=== PATIENT | male | born 1970 ===

== ENCOUNTER 2017-11-09 16:49 | Emergency (ER) | payer SELFPAY ==
[2017-11-09] MEDS ORDERED: LORazepam 2 MG/ML VIAL ONE (16:57)
[2017-11-09] MEDS ORDERED: OLANZapine 10 MG VIAL IM ONLY ONE ×2 (17:05→17:06)
[2017-11-09] MEDS ORDERED: diphenhydrAMINE 50 MG/ML VIAL IVP ONE (17:05)
[2017-11-09] MEDS ORDERED: WATER STERILE 10 ML VIAL IM ONLY ONE (17:05)
--- NOTE | 2017-11-09 17:09 | ER Report ---
History and Physical Time Seen By MD: 16:50 Hx. of Stated Complaint: pt arrested for meth use, states he used 3 days ago, reports chest pain radiating to L jaw and neck, dishoretic, restless, hx mi HPI/ROS CHIEF COMPLAINT: Chest pain, methamphetamine use, medical clearance HISTORY OF PRESENT ILLNESS: Patient is a 47-year-old male accompanied by police , who presents to the ED with complaint of chest pain. The police state that they have put the patient under arrest for DUI with methamphetamine use and he complained of chest pain when they were arresting him. Patient states that while resting he was dropped on the back and is complaining of some lumbar back pain. He states that he has been dealing with PTSD as well and feels that this is making his anxiety worse because of the police. He states that he has not used methamphetamine for the past 3 days but the police believe that he did use this today. Patient denies any palpitations. He states that he is chest pain appears to be radiating to his left arm and left jaw. He states that he just developed this while being arrested. He denies any shortness of breath. REVIEW OF SYSTEMS: Constitutional: No fever, no chills. Eyes: No discharge. ENT: No sore throat. Cardiovascular: See history of present illness. Respiratory: No cough, no shortness of breath. Gastrointestinal: No abdominal pain, no vomiting. Genitourinary: No hematuria. Musculoskeletal: No back pain. Skin: No rashes. Neurological: No headache. Allergies: Coded Allergies: morphine (Verified Allergy, Mild, 11/09/17) ketorolac (Verified Allergy, Unknown, 11/09/17) tramadol (Verified Allergy, Unknown, 11/09/17) Uncoded Allergies: antiemetics (Allergy, Unknown, 11/09/17) Reviewed Nurses Notes: Yes Old Medical Records Reviewed: Yes Constitutional Vital Sign - Last 24 Hours 11/09/17 11/09/17 11/09/17 11/09/17 16:50 16:51 16:54 17:00 Temp 96.8 Pulse 114 Resp 25 B/P (MAP) 202/138 202/138 (159) 182/145 (157) 185/129 (147) Pulse Ox 86 11/09/17 11/09/17 11/09/17 11/09/17 17:04 17:10 17:19 17:20 Pulse ??? 104 B/P (MAP) 205/98 (133) 174/114 (134) Pulse Ox 91 11/09/17 11/09/17 11/09/17 11/09/17 17:22 17:30 17:40 17:49 Pulse 98 Resp 19 B/P (MAP) 156/98 (117) 188/111 (136) Pulse Ox 93 O2 Flow Rate 2.0 11/09/17 11/09/17 11/09/17 11/09/17 17:50 17:55 18:00 18:10 Pulse 100 ??? Resp 16 B/P (MAP) 169/123 (138) 162/104 (123) 154/103 (120) Pulse Ox 93 94 11/09/17 11/09/17 11/09/17 11/09/17 18:20 18:25 18:30 18:40 Pulse 103 95 B/P (MAP) 155/101 (119) 163/100 (121) 158/99 (118) Pulse Ox 93 94 11/09/17 11/09/17 11/09/17 11/09/17 18:50 18:55 19:00 19:10 Pulse 87 ??? Resp 14 17 B/P (MAP) 180/137 (151) 173/102 (125) 164/105 (124) Pulse Ox 93 93 11/09/17 11/09/17 11/09/17 11/09/17 19:20 19:22 19:25 19:30 Temp 98.5 Pulse 96 Resp 13 B/P (MAP) 175/112 (133) 172/107 (128) Pulse Ox 90 11/09/17 11/09/17 11/09/17 19:40 19:50 21:05 Temp 98.1 Pulse 101 Resp 52 B/P (MAP) 168/121 (137) 180/123 (142) Pulse Ox 90 Physical Exam General Appearance: The patient is alert, has no immediate need for airway protection and no signs of toxicity. Patient appears to be quite anxious with rapid speech. Eyes: Pupils equal and round no pallor or injection. ENT, Mouth: Mucous membranes are moist. Respiratory: There are no retractions, lungs are clear to auscultation. Cardiovascular: Regular rate and rhythm. Gastrointestinal: Abdomen is soft and non tender, no masses, bowel sounds normal. Neurological: Cranial nerves II through XII intact. Skin: Warm and dry, no rashes. Musculoskeletal: Neck is supple non tender. Extremities are nontender, nonswollen and have full range of motion. DIFFERENTIAL DIAGNOSIS: After history and physical exam differential diagnosis was considered for chest pain including but not limited to myocardial ischemia, pericarditis pulmonary embolus, chest wall pain, pleural inflammation and pulmonary infectious causes. Medical Decision Making Data Points Result Diagram: 11/09/17 1758 11/09/17 1758 Laboratory Hematology Test 11/09/17 17:40 11/09/17 17:58 Urine Opiates Screen Negative Urine Barbiturates Screen Negative Ur Tricyclic Antidepressants Screen Negative Urine Phencyclidine Screen Negative Urine Amphetamines Screen Positive Urine Benzodiazepines Screen Negative Urine Cocaine Screen Negative Urine Cannabinoids Screen Negative Red Blood Count 4.15 M/uL (4.00-5.60) Mean Corpuscular Volume 90.4 fL (80.0-96.0) Mean Corpuscular Hemoglobin 31.2 pg (26.0-33.0) Mean Corpuscular Hemoglobin Concent 34.5 g/dL (32.0-36.0) Red Cell Distribution Width 12.7 % (11.5-14.5) Mean Platelet Volume 7.1 fL (7.2-11.1) Neutrophils (%) (Auto) 85.0 % (39.4-72.5) Lymphocytes (%) (Auto) 8.1 % (17.6-49.6) Monocytes (%) (Auto) 5.4 % (4.1-12.4) Eosinophils (%) (Auto) 0.8 % (0.4-6.7) Basophils (%) (Auto) 0.7 % (0.3-1.4) Nucleated RBC Relative Count (auto) 0.0 /100WBC Neutrophils # (Auto) 7.6 K/uL (2.0-7.4) Lymphocytes # (Auto) 0.7 K/uL (1.3-3.6) Monocytes # (Auto) 0.5 K/uL (0.3-1.0) Eosinophils # (Auto) 0.1 K/uL (0.0-0.5) Basophils # (Auto) 0.1 K/uL (0.0-0.1) Nucleated RBC Absolute Count (auto) 0.00 K/uL Peripheral Blood Smear No Y/N Sodium Level 136 mmol/L (137-145) Potassium Level 3.4 mmol/L (3.5-5.0) Chloride Level 99 mmol/L (98-107) Carbon Dioxide Level 28 mmol/L (22-30) Blood Urea Nitrogen 11 mg/dl (9-21) Creatinine 1.00 mg/dl (0.66-1.25) Glomerular Filtration Rate Calc > 60.0 Random Glucose 91 mg/dl (75-110) Calcium Level 9.1 mg/dl (8.4-10.2) Total Bilirubin 0.5 mg/dl (0.2-1.3) Aspartate Amino Transf (AST/SGOT) 25 U/L (0-35) Alanine Aminotransferase (ALT/SGPT) 32 U/L (0-56) Alkaline Phosphatase 114 U/L (0-126) Troponin I < 0.012 ng/ml Total Protein 7.5 gm/dl (6.3-8.2) Albumin 3.8 g/dl (3.5-5.0) Serum Alcohol < 10 mg/dl Chemistry Test 11/09/17 17:40 11/09/17 17:58 Urine Opiates Screen Negative Urine Barbiturates Screen Negative Ur Tricyclic Antidepressants Screen Negative Urine Phencyclidine Screen Negative Urine Amphetamines Screen Positive Urine Benzodiazepines Screen Negative Urine Cocaine Screen Negative Urine Cannabinoids Screen Negative White Blood Count 8.9 k/uL (4.5-11.0) Red Blood Count 4.15 M/uL (4.00-5.60) Hemoglobin 12.9 g/dL (14.0-18.0) Hematocrit 37.5 % (42.0-52.0) Mean Corpuscular Volume 90.4 fL (80.0-96.0) Mean Corpuscular Hemoglobin 31.2 pg (26.0-33.0) Mean Corpuscular Hemoglobin Concent 34.5 g/dL (32.0-36.0) Red Cell Distribution Width 12.7 % (11.5-14.5) Platelet Count 259 K/uL (150-450) Mean Platelet Volume 7.1 fL (7.2-11.1) Neutrophils (%) (Auto) 85.0 % (39.4-72.5) Lymphocytes (%) (Auto) 8.1 % (17.6-49.6) Monocytes (%) (Auto) 5.4 % (4.1-12.4) Eosinophils (%) (Auto) 0.8 % (0.4-6.7) Basophils (%) (Auto) 0.7 % (0.3-1.4) Nucleated RBC Relative Count (auto) 0.0 /100WBC Neutrophils # (Auto) 7.6 K/uL (2.0-7.4) Lymphocytes # (Auto) 0.7 K/uL (1.3-3.6) Monocytes # (Auto) 0.5 K/uL (0.3-1.0) Eosinophils # (Auto) 0.1 K/uL (0.0-0.5) Basophils # (Auto) 0.1 K/uL (0.0-0.1) Nucleated RBC Absolute Count (auto) 0.00 K/uL Peripheral Blood Smear No Y/N Glomerular Filtration Rate Calc > 60.0 Calcium Level 9.1 mg/dl (8.4-10.2) Total Bilirubin 0.5 mg/dl (0.2-1.3) Aspartate Amino Transf (AST/SGOT) 25 U/L (0-35) Alanine Aminotransferase (ALT/SGPT) 32 U/L (0-56) Alkaline Phosphatase 114 U/L (0-126) Troponin I < 0.012 ng/ml Total Protein 7.5 gm/dl (6.3-8.2) Albumin 3.8 g/dl (3.5-5.0) Serum Alcohol < 10 mg/dl Toxicology Test 11/09/17 17:40 11/09/17 17:58 Urine Opiates Screen Negative Urine Barbiturates Screen Negative Ur Tricyclic Antidepressants Screen Negative Urine Phencyclidine Screen Negative Urine Amphetamines Screen Positive Urine Benzodiazepines Screen Negative Urine Cocaine Screen Negative Urine Cannabinoids Screen Negative Serum Alcohol < 10 mg/dl EKG/Imaging EKG Interpretation 12 lead EKG: Rhythm: Sinus tachycardia, rate 101 bpm [place]: normal QRS: normal ST segments: No acute ST changes identified. Monitor Interpretation: Sinus Tachycardia Imaging CXR: IMPRESSION: Mild peribronchial thickening which could be due to an acute versus chronic bronchiolitis or reactive airway disease. Report Dictated By: Jhonny Sosa MD at 11/09/2017 6:24 PM Report E-Signed By: Jhonny Sosa MD at 11/09/2017 6:28 PM ED Course/Re-evaluation ED Course Obtain labs, chest x-ray, lumbar spine x-ray, EKG. Patient given 2 mg IV Ativan , 50 mg IV Benadryl, 10 mg IM Zyprexa for agitation and anxiety. Pt is requesting Dilaudid and to be "put out". Discussed that we can help with his anxiety with these medications. After medication administration, per RN police state nthat pt is no longer under arrest. 11/09/2017 8:48:47 pm - patient no longer having any pain. He is resting well. He states that he is feeling well right now. Police have called RN stating that they want to be notified when pt is discharged to be discharged to penitentiary. Police did return to ED but then left and RN believes that pt is not under arrest at this time. Plan will now be to discharge pt home. Per RN, police returned and pt was discharged with police to penitentiary. Decision to Disposition Date: Nov 09, 2017 Decision to Disposition Time: 21:35 Depart Departure Latest Vital Signs Vital Signs Date Time Temp Pulse Resp B/P (MAP) Pulse Ox O2 Delivery O2 Flow Rate FiO2 11/09/17 21:05 98.1 11/09/17 19:50 180/123 (142) 11/09/17 19:40 101 52 90 11/09/17 17:22 2.0 Impression: Primary Impression: Methamphetamine use Additional Impression: Chest pain Condition: Improved Disposition: [facility] TO HALF-WAY/CORRECTIONAL F Patient Instructions: Chest Pain (ED), Methamphetamine Abuse (ED) Additional Instructions: Stay well-hydrated. Follow-up with primary care provider in 2-3 days. If having any worsening or concerning symptoms may return the Emergency Department. Problem Qualifiers Additional Impression: Chest pain Chest pain type: unspecified Qualified Codes: R07.9 - Chest pain, unspecified JESSICA COOPER PA-C Nov 09, 2017 17:09
[2017-11-09 18:03] LABS: PLATELET COUNT, AUTOMATED 259 K/uL (150-450)
--- NOTE | 2017-11-09 18:11 | EKG ---
FACILITY: [facility] PATIENT NAME: CANDELARIA ORR : [id number] MR: [id number] V: [id number] EXAM DATE: ORDERING PHYSICIAN: JESSICA COOPER TECHNOLOGIST: Irwin Foy Reason : Blood Pressure : / mmHG Vent. Rate : 101 BPM Atrial Rate : 101 BPM P-R Int : 128 ms QRS Dur : 094 ms QT Int : 360 ms P-R-T Axes : 049 053 058 degrees QTc Int : 466 ms Sinus tachycardia Otherwise normal ECG No previous ECGs available Confirmed by ISRA CORNELIUS ([id number]) on 11/09/2017 6:36:54 PM Referred By: Confirmed By:ISRA CORNELIUS
--- NOTE | 2017-11-09 18:31 | RADIOLOGY IMAGING REPORT ---
[place] [facility] [place]IENT NAME: Delvin Swenson : 1970 MR: [id number] V: [id number] EXAM DATE: ORDERING PHYSICIAN: JESSICA COOPER TECHNOLOGIST: Location: [facility] Patient: Delvin Swenson : 1970 Visit/Account:[id number] Date of Sevice: 11/09/2017 Examination: CHEST SINGLE AP Comparison: None. History: Chest Pain Findings: No consolidation or nodule. Mild peribronchial thickening. No pneumothorax, edema, or effus ion. Cardiac and hilar contour size is within normal limits. Osseous structures are intact. IMPRESSION: Mild peribronchial thickening which could be due to an acute versus chronic bronchiolitis or reactive airway disease. Report Dictated By: Jhonny Sosa MD at 11/09/2017 6:24 PM Report E-Signed By: Jhonny Sosa MD at 11/09/2017 6:28 PM WSN:[id number]
[2017-11-09 19:50] VITALS: BP 180/123
== END 2017-11-09 22:00 ==
LOC: ER 16:52
DX: F15.90 Other stimulant use, unspecified, uncomplicated (principal); R07.9 Chest pain, unspecified; R00.0 Tachycardia, unspecified
CPT/HCPCS: 36415; 71045; 80305; 80320; 84484; 85025; 93005; 96372; 96374; 96375; 99284; A4216; J1200; J2060; J3490; 82040; 82247; 82310; 82374; 82435; 82565; 82947; 84075; 84132; 84155; 84295; 84450; 84460; 84520

== ENCOUNTER → 2017-11-09 | Outpatient (CLI) | payer MEDICARE ==
[~2017-11-09] MED LIST: ALLO100T70 PO; ASPI81TA94 PO; ATOR40TA24 PO; BUSP10TA95 PO; CLOP75TA43 PO; FENO160T11 PO; FURO-45 PO; LISI-374 PO; METO50TA19 PO; NICO4LOZ35 PO
== END ==
LOC: AMB 16:26
PROVIDERS: ATTEND Nurse Practitioner
DX: R07.9 Chest pain, unspecified (principal); F15.129 Other stimulant abuse with intoxication, unspecified
CPT/HCPCS: A0425; A0427

== ENCOUNTER 2017-11-13 13:22 | Emergency (ER) | payer MEDICARE ==
[~2017-11-13] VITALS: Ht 188 cm; Wt 113.4 kg
[2017-11-13] MEDS ORDERED: LORazepam 2 MG/ML VIAL IVP ONE ×2 (13:35→14:50)
[2017-11-13] MEDS ORDERED: ASPIRIN 81 MG CHEW PO ONE (13:35)
--- NOTE | 2017-11-13 13:38 | EKG ---
FACILITY: [facility] - [place] PATIENT NAME: CANDELARIA ORR : [id number] MR: [id number] V: [id number] EXAM DATE: ORDERING PHYSICIAN: GLORIA PATEL TECHNOLOGIST: Test Reason : Blood Pressure : / mmHG Vent. Rate : 109 BPM Atrial Rate : 109 BPM P-R Int : 120 ms QRS Dur : 072 ms QT Int : 312 ms P-R-T Axes : 078 078 077 degrees QTc Int : 420 ms Sinus tachycardia with premature atrial complexes Possible Left atrial enlargement Borderline ECG When compared with ECG of 09-NOV-2017 17:31, premature atrial complexes are now present Confirmed by KAVITHA KIDD ([id number]) on 11/14/2017 5:20:34 AM Referred By: Confirmed By:KAVITHA KIDD
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
[2017-11-13 13:58] LABS: PLATELET COUNT, AUTOMATED 281 K/uL (150-450)
[2017-11-13] MEDS ORDERED: cloNIDine HCL 0.1 MG TAB PO ONE (14:15)
--- NOTE | 2017-11-13 14:34 | RADIOLOGY IMAGING REPORT ---
[place] [facility] [place] Delvin Swenson : 1970 MR: [id number] V: [id number] EXAM DATE: ORDERING PHYSICIAN: GLORIA PATEL TECHNOLOGIST: Location: [facility] Patient: Delvin Swenson : 1970 Visit/Account:[id number] Date of Sevice: 11/13/2017 Exam type: CHEST PA AND LAT History: Chest pain Comparison: 2017. Findings: The lungs are free of acute effusions, infiltrates or edema. There is no evidence of a pneumothorax or pneumomediastinum.. The cardiac silhouette is normal in size. Trachea is in midline. IMPRESSION: 1. No acute cardiac pulmonary process is seen Report Dictated By: Angelina Bartholomew MD at 11/13/2017 2:26 PM Report E-Signed By: Angelina Bartholomew MD at 11/13/2017 2:30 PM WSN:[email or web address]
[2017-11-13] MEDS ORDERED: fentaNYL CITR 100 MCG/2 ML AMP IVP ONE (14:50)
[2017-11-13] MEDS ORDERED: NS 0.9% 50 ML VIAL 100 ML ONE (14:54)
[2017-11-13] MEDS ORDERED: IOPAMIDOL 76% 75 ML INFUS BTL 75 ML ONE (14:54)
--- NOTE | 2017-11-13 15:48 | RADIOLOGY IMAGING REPORT ---
FACILITY: [facility] PATIENT NAME: Delvin Swenson : 1970 MR: [id number] V: [id number] EXAM DATE: [id number] ORDERING PHYSICIAN: GLORIA PATEL TECHNOLOGIST: Location: [facility] Patient: Delvin Swenson : 1970 Visit/Account:[id number] Date of Sevice: 11/13/2017 CT ANGIOGRAM OF THE CHEST WITH INTRAVENOUS CONTRAST, PE PROTOCOL DATE OF EXAM: 11/13/2017 14:19 COMPARISON: Chest radiographs of the same day. INDICATION: Chest pain. TECHNIQUE: Contrast enhanced chest CT performed during the injection of 75 ml of Isovue-370. Three-d imensional (MIP) reconstructions were performed. FINDINGS: There is no pulmonary arterial filling defect. Contrast does reflux into the hepatic veins. Thyroid: Incompletely imaged thyroid. Thoracic inlet: No adenopathy. Heart and great vessels: Heart size is normal. Mediastinum and gayle: A few mediastinal lymph nodes are mildly prominent. Lungs and pleura: No effusion, consolidation, or pneumothorax. Mild dependent atelectasis. Breast and axilla: Breast tissue is unremarkable by CT. Subcutaneous nodule on the right anterolater al chest wall is just deep to the skin surface and measures approximately 1 cm on series 4 image 41. Bones and soft tissues: No acute osseous abnormality. Upper abdomen: Unremarkable. IMPRESSION: Negative for pulmonary arterial embolus. One of the following dose optimization techniques was utilized in the performance of this exam: Autom ated exposure control; adjustment of the mA and/or kV according to the patient's size; or use of an i terative reconstruction technique. Specific details can be referenced in the facility's radiology C T exam operational policy. Report Dictated By: Christy Morgan MD at 11/13/2017 3:30 PM Report E-Signed By: Christy Morgan MD at 11/13/2017 3:43 PM WSN:[id number]
[2017-11-13 16:40] VITALS: BP 122/113
[2017-11-14] MEDS ORDERED: FURO-45 PO (15:26)
[2017-11-14] MEDS ORDERED: LISI-374 PO (15:26)
[2017-11-14] MEDS ORDERED: ALLO100T70 PO (15:26)
[2017-11-14] MEDS ORDERED: FENO160T11 PO (15:26)
[2017-11-14] MEDS ORDERED: METO50TA19 PO (15:26)
[2017-11-14] MEDS ORDERED: ATOR40TA24 PO (15:26)
[2017-11-14] MEDS ORDERED: CLOP75TA43 PO (15:26)
[2017-11-14] MEDS ORDERED: BUSP10TA95 PO (15:26)
== END 2017-11-13 17:22 ==
LOC: ER 13:26
DX: R45.851 Suicidal ideations (principal)
CPT/HCPCS: 71046; 71275; 80305; 84484; 85025; 85379; 93005; 96374; 96375; 96376; 99285; A9270; G0480; J2060; J3010; J7050; Q9967; 80320; 82040; 82247; 82310; 82374; 82435; 82565; 82947; 84075; 84132; 84155; 84295; 84450; 84460; 84520

== ENCOUNTER 2017-11-13 16:53 | Inpatient (IN) | payer MEDICARE ==
[~2017-11-13] VITALS: Ht 188 cm; Wt 113.4 kg
[2017-11-13] MEDS ORDERED: QUEtiapine FUM 100 MG TAB PO PRN ×2 (19:00→21:30)
[2017-11-13 19:02] VITALS: BP 142/92
[2017-11-13] MEDS ORDERED: NICOTINE POLACRILEX 4 MG LOZG PO PRN (20:35)
[2017-11-13] MEDS ORDERED: QUEtiapine FUM 100 MG TAB PO SCH (21:00)
[2017-11-14 08:55] VITALS: BP 145/83
[2017-11-14] MEDS ORDERED: hydrOXYzine 25 MG TAB PO ONE (10:55)
[2017-11-14 12:09] VITALS: BP 144/80
[2017-11-14] MEDS ORDERED: hydrOXYzine PAMOATE 25 MG CAP PO PRN (12:50)
[2017-11-14] MEDS ORDERED: QUEtiapine FUM 100 MG TAB PO PRN (12:50)
[2017-11-14] MEDS ORDERED: ASPIRIN 81 MG ENTERIC COATED PO SCH (12:50)
[2017-11-14] MEDS ORDERED: ALLO100T70 PO (15:26)
[2017-11-14] MEDS ORDERED: FENO160T11 PO (15:26)
[2017-11-14] MEDS ORDERED: METO50TA19 PO (15:26)
[2017-11-14] MEDS ORDERED: CLOP75TA43 PO (15:26)
[2017-11-14] MEDS ORDERED: ATOR40TA24 PO (15:26)
[2017-11-14] MEDS ORDERED: BUSP10TA95 PO (15:26)
[2017-11-14] MEDS ORDERED: FURO-45 PO (15:26)
[2017-11-14] MEDS ORDERED: LISI-374 PO (15:26)
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
[2017-11-14 22:00] VITALS: BP 150/91
[2017-11-15 05:59] VITALS: BP 138/80
[2017-11-15] MEDS ORDERED: ASPIRIN 81 MG ENTERIC COATED PO SCH (09:00)
[2017-11-15] MEDS ORDERED: ASPI81TA94 PO (09:28)
[2017-11-15] MEDS ORDERED: NICO4LOZ35 PO (09:29)
--- NOTE | 2017-11-15 19:48 | DISCHARGE SUMMARY ---
DATE OF ADMISSION November 13, 2017 DATE OF DISCHARGE November 15, 2017 FINAL DIAGNOSES PER DSM-V Stimulant use disorder, severe, methamphetamine. Stimulant-induced mood disorder. Malingering. Adjustment disorder with depressed mood. Cluster B personality traits. Antisocial traits very strong. Limitations of illness. Legal stressors. This 47-year-old male was seen for discharge on November 15, 2016 at approximately 0900 hours. REASON FOR ADMISSION This 47-year-old male was passing through [employer] on November 09, 2017 when he was arrested for suspicion of methamphetamine intoxication while driving. Patient was brought to the emergency room, medically cleared. Patient then transferred to correction where he was later discharged. On day of discharge from correction patient was calling crisis line stating that he needed to come to the emergency room. Patient notably had very limited finances, was unable to get his vehicle out of the impound lot. Patient now having legal consequences that he must return to court for as well and patient admitted for suicidal ideation, however, patient likely suffering from the aforementioned homelessness and financial limitations. Patient was admitted without incident for further evaluation. Please see H and P for full details. Upon the unit patient was noncooperative overall with any treatment goals. This was addressed on the morning of November 15, 2017. Patient stated he would start to comply with treatment team goals and take an active role in discharge planning. Patient then quickly refused to watch any tapes on substance abuse, and not cooperating with therapist. Patient then requesting to discharge. Arrangements were made for transportation to adequate housing, please see discharge plan, and the patient was discharged. PHYSICAL EXAMINATION GENERAL: Please see emergency room note. Notable for a 47-year-old male. VITAL SIGNS: At the time of admission notable for temperature of 98.7, pulse 112, respiratory rate 20, blood pressure 202/162 and a pulse oximetry of 93 on room air. These elevated vital signs were likely a result of methamphetamine intoxication which the patient admitted to. At the time of discharge from Behavioral Health Unit vital signs showed temperature 98.0, pulse 75, blood pressure 138/80, respiratory rate of 16, pulse oximetry 94 on room air. LABORATORY DATA Toxicology screen on November 15, 2017 was negative. On November 13, 2017 upon arrival patient's amphetamine screen was positive, negative for other substances of abuse, nondetectable serum alcohol level. D-dimer slightly elevated at 0.99 upon admission. Troponins were undetectable. CMP largely unremarkable and CBC largely unremarkable. MENTAL STATUS EXAMINATION AT THE TIME OF DISCHARGE GENERAL APPEARANCE, BEHAVIOR AND ATTITUDE: This is a disheveled 47-year-old male, alternating between psychomotor retardation and psychomotor activation. Patient overall cooperative, but frustrated with discharge process. Patient maintaining that he did not want to attend any therapeutic goals. SPEECH: Difficult to understand at times. MOOD: Frustrated. AFFECT: Minimal constriction. THOUGHT PROCESSES: Appear goal directed. Patient wanting help for a ride to correction. Logical. No loose associations or flight of ideas. THOUGHT CONTENT: Free of auditory or visual hallucinations, ideas of reference , thought broadcastings, delusions, obsessions, compulsions. Patient adamantly denying suicidal or homicidal ideation. SENSORIUM: Clear. COGNITION: Alert and oriented to person, place, time and situation. MEMORY: Immediate, recent and remote estimated intact. INTELLIGENCE: Likely average based on interview. INSIGHT AND JUDGMENT: Considered grossly intact and acceptable for outpatient care in the absence of drug or alcohol use. RESULTS OF TESTING IMAGING: Chest CTA and chest x-ray upon admission were unremarkable, and given due to patient's complaints of chest pain. LABORATORY DATA: See above. CONSULTATIONS: None. TREATMENT Patient received some medications, did not participate fully in individual and group therapy. HOSPITAL COURSE Patient initially found to be a grossly inaccurate historian with grandiose distortions of any service the patient may have participated in. Please see H and P for full details. Patient continued to be a less accurate historian throughout his stay. Patient not wanting to participate in any form of treatment. CONDITION OF PATIENT ON DISCHARGE Stable. Considered a minimal risk in the absence of drug use. DISPOSITION Patient was discharged to correction. Patient was given assistance with this. Patient would follow up with outpatient providers there. Patient would continue aspirin 81 mg daily. Encouraged to stop smoking and continue nicotine replacement therapy over the counter. Patient was known not to be taking any other medications prior to admission, and medications that patient claimed would be held until seen by outpatient provider. Patient agreed to abstain from all illicit substances and alcohol in the future. Risks versus benefits of above discharge plan were discussed, informed consent was given to proceed with above discharge plan by this patient. QUIQUE
== END 2017-11-15 10:30 | disposition home or self-care (01) | DRG 897 ==
LOC: BHS 16:53
PROVIDERS: ADMIT Psychiatry & Neurology Psychiatry; ATTEND Psychiatry & Neurology Psychiatry
DX: F15.121 Other stimulant abuse with intoxication delirium (principal); R45.851 Suicidal ideations; F25.9 Schizoaffective disorder, unspecified; F17.210 Nicotine dependence, cigarettes, uncomplicated; F15.14 Other stimulant abuse with stimulant-induced mood disorder; F43.21 Adjustment disorder with depressed mood; Z76.5 Malingerer [conscious simulation]; Z79.82 Long term (current) use of aspirin; Z88.5 Allergy status to narcotic agent; Z88.6 Allergy status to analgesic agent; Z59.0 Homelessness; Z65.3 Problems related to other legal circumstances; I25.2 Old myocardial infarction; Z95.5 Presence of coronary angioplasty implant and graft
CPT/HCPCS: 71046; 71275; 80305; 80320; 82040; 82247; 82310; 82374; 82435; 82565; 82947; 84075; 84132; 84155; 84295; 84450; 84460; 84484; 84520; 85025; 85379; 93005; 96374; 96375; 96376; 99285; J2060; J3010; J7050; Q0177; Q9967

== ENCOUNTER → 2017-11-13 | Outpatient (CLI) | payer MEDICARE | LOC: AMB 13:05 | PROVIDERS: ATTEND Nurse Practitioner | DX: R07.9 Chest pain, unspecified (principal); I10 Essential (primary) hypertension; R00.0 Tachycardia, unspecified | CPT/HCPCS: A0425; A0427 ==